=== PATIENT | female | born 1970 | race Caucasian/White ===

== ENCOUNTER → 2018-06-08 | Outpatient (CLI) | payer OTHER ==
[~2018-06-08] MED LIST: ALBUTEROL MDI; LISI2.5T PO; METO25TA91 PO; OMNIPAQUE 350 MG/ML, 100ML BOTTLE ONE; QVAR; TIOT18CA INH
== END | disposition home or self-care (01) ==
LOC: RAD 10:13
PROVIDERS: ATTEND Family Medicine
DX: N85.2 Hypertrophy of uterus (principal); K76.0 Fatty (change of) liver, not elsewhere classified; K86.2 Cyst of pancreas; K59.00 Constipation, unspecified
CPT/HCPCS: 74178; Q9967

== ENCOUNTER 2018-07-11 11:35 | Day surgery (SDC) | payer OTHER ==
[2018-07-10 08:35] VITALS: BP 122/63
[~2018-07-11] VITALS: Ht 170.2 cm; Wt 72.8 kg
[~2018-07-11 11:35] MED LIST changes: +ALBU18HF PO; -OMNIPAQUE 350 MG/ML, 100ML BOTTLE ONE
[2018-07-11] MEDS ORDERED: LACTATED RINGERS 1,000 ML IV SCH (11:46)
[2018-07-11] MEDS ORDERED: SUGAMMADEX 200 MG/2 ML IVPush ONE (11:46)
[2018-07-11] MEDS ORDERED: PIPERACILLIN/TAZO/PMX 3.375GM 50 ML ONE (11:46)
[2018-07-11] MEDS ORDERED: CHLORHEXIDINE 15 ML BOTTLE MM ONE (12:00)
[2018-07-11] MEDS ORDERED: APREPITANT 40 MG CAPSULE PO ONE (12:00)
[2018-07-11 12:05] VITALS: BP 122/63
[2018-07-11] MEDS ORDERED: ALBUTEROL SULFATE 2.5 MG/3 ML ONE (12:21)
[2018-07-11] MEDS ORDERED: PROPOFOL 10 MG/ML, 20ML ONE (13:22)
[2018-07-11] MEDS ORDERED: PHENYLEPHRINE 10 MG/ML ONE (13:53)
[2018-07-11] MEDS ORDERED: ROCURONIUM 10MG/ML,5ML ONE (13:53)
[2018-07-11] MEDS ORDERED: LIDOCAINE-MPF 2% ,5ML ONE (13:53)
[2018-07-11] MEDS ORDERED: ALBUTEROL HFA 90 MCG/SPRAY ONE (13:54)
[2018-07-11 15:22] LABS: BASOPHILS # (AUTO) 0.13 x10^3/uL (0-0.1); BASOPHILS % (AUTO) 2 % (0-1); EOSINOPHILS # (AUTO) 0.18 x10^3/uL (0-0.4); EOSINOPHILS % (AUTO) 3 % (1-7); LYMPHOCYTES # (AUTO) 2.12 x10^3/uL (1-3.4); LYMPHOCYTES % (AUTO) 34 % (22-44); MD NO; MEAN CORPUSCULAR HEMOGLOBIN 36.2 pg (27.0-34.8); MEAN CORPUSCULAR HGB CONC 33.2 g/dL (32.4-35.8); MEAN PLATELET VOLUME 8.5 fL (7.4-10.4); MONOCYTES # (AUTO) 0.82 x10^3/uL (0.2-0.8); MONOCYTES % (AUTO) 13 % (2-9); NEUTROPHILS # (AUTO) 2.96 x10^3/uL (1.8-6.8); NEUTROPHILS % (AUTO) 48 % (42-75); PLATELET COUNT 284 x10^3/uL (130-400); RED BLOOD COUNT 3.87 x10^6/uL (3.82-5.3); RED CELL DISTRIBUTION WIDTH 16.4 % (9.6-15.2)
[2018-07-11 15:30] LABS: ALBUMIN 3.1 g/dL (3.4-5.0); ANION GAP 13 mmol/L (5-15); CALCIUM 8.7 mg/dL (8.5-10.1); CHLORIDE 108 mmol/L (98-107)
[2018-07-11 15:43] LABS: ALANINE AMINOTRANSFERASE 135 U/L (12-78); ALKALINE PHOSPHATASE 92 U/L (45-117); BILIRUBIN,TOTAL 0.4 mg/dL (0.2-1.0); CREATININE 0.83 mg/dL (0.55-1.02)
== END 2018-07-11 16:20 | disposition home or self-care (01) ==
LOC: OUT 11:35
PROVIDERS: ATTEND Internal Medicine Gastroenterology
DX: K29.50 Unspecified chronic gastritis without bleeding (principal); K22.10 Ulcer of esophagus without bleeding; K22.2 Esophageal obstruction; K44.9 Diaphragmatic hernia without obstruction or gangrene; K86.2 Cyst of pancreas; J44.9 Chronic obstructive pulmonary disease, unspecified; Z86.010 Personal history of colon polyps; Z88.8 Allergy status to other drugs, medicaments and biological substances; Z87.891 Personal history of nicotine dependence
CPT/HCPCS: 36415; 43238; 80053; 80074; 80307; 80324; 82150; 82784; 83516; 83690; 84443; 85025; 86301; 88112; 88173; 88305; 94640; J2370; J2543; J2704; J3490; J7120; J8501; G0480

== ENCOUNTER → 2018-10-18 | Outpatient (CLI) | payer OTHER ==
[~2018-10-18] MED LIST changes: +DEXL60CA2 PO
[2018-10-18 14:38] LABS: BASOPHILS # (AUTO) 0.07 x10^3/uL (0-0.1); BASOPHILS % (AUTO) 1 % (0-1); EOSINOPHILS # (AUTO) 0.53 x10^3/uL (0-0.4); EOSINOPHILS % (AUTO) 5 % (1-7); LYMPHOCYTES # (AUTO) 2.53 x10^3/uL (1-3.4); LYMPHOCYTES % (AUTO) 22 % (22-44); MD NO; MEAN CORPUSCULAR HEMOGLOBIN 33.2 pg (27.0-34.8); MEAN CORPUSCULAR HGB CONC 33.9 g/dL (32.4-35.8); MEAN CORPUSCULAR VOLUME 98.1 fL (80-100); MEAN PLATELET VOLUME 8.3 fL (7.4-10.4); MONOCYTES # (AUTO) 0.97 x10^3/uL (0.2-0.8); MONOCYTES % (AUTO) 8 % (2-9); NEUTROPHILS # (AUTO) 7.38 x10^3/uL (1.8-6.8); NEUTROPHILS % (AUTO) 64 % (42-75); PLATELET COUNT 309 x10^3/uL (130-400); RED CELL DISTRIBUTION WIDTH 13.7 % (9.6-15.2)
[2018-10-18 14:47] LABS: ANION GAP 7 mmol/L (5-15); CALCIUM 9.5 mg/dL (8.5-10.1); CHLORIDE 107 mmol/L (98-107); CREATININE 0.77 mg/dL (0.55-1.02)
== END | disposition home or self-care (01) ==
LOC: STAR 13:34
PROVIDERS: ATTEND Obstetrics & Gynecology Female Pelvic Medicine and Reconstructive Surgery
DX: Z01.818 Encounter for other preprocedural examination (principal); N85.2 Hypertrophy of uterus; D25.9 Leiomyoma of uterus, unspecified
CPT/HCPCS: 36415; 71046; 80048; 85025; 93005

== ENCOUNTER 2018-11-12 10:39 | Day surgery (SDC) | payer OTHER ==
[~2018-11-12] VITALS: Ht 170.2 cm; Wt 70.8 kg
[2018-11-12] MEDS ORDERED: OMEP20TA62 PO (11:41)
[2018-11-12] MEDS ORDERED: LACTATED RINGERS 1,000 ML IV SCH ×2 (11:44→17:38)
[2018-11-12 11:53] LABS: HCG UR SG 1.018 (1.003-1.030)
[2018-11-12] MEDS ORDERED: SCOPOLAMINE PATCH, 1.5MG PATCH.TD72 TD ONE (12:00)
[2018-11-12] MEDS ORDERED: ACETAMINOPHEN 500 MG TABLET PO ONE (12:00)
[2018-11-12] MEDS ORDERED: GABAPENTIN 300 MG CAPSULE PO ONE (12:00)
[2018-11-12] MEDS ORDERED: INDIGO CARMINE 0.8%, 5ML ONE (13:45)
[2018-11-12] MEDS ORDERED: ONDANSETRON ODT 8 MG PO PRN (14:00)
[2018-11-12] MEDS ORDERED: hydrALAzine 20 MG/ML, 1ML IV PRN (14:00)
[2018-11-12] MEDS ORDERED: PROMETHAZINE 25 MG/ML, 1ML IV PRN (14:00)
[2018-11-12] MEDS ORDERED: LABETALOL 5MG/ML, 20ML IV PRN (14:00)
[2018-11-12] MEDS ORDERED: PROMETHAZINE 25 MG/ML, 1ML IM PRN ×2 (14:00)
[2018-11-12] MEDS ORDERED: PROMETHAZINE 25 MG SUPP PR PRN (14:00)
[2018-11-12] MEDS ORDERED: HYDROmorphone 2 MG/ML, 1ML IVPush PRN (14:00)
[2018-11-12] MEDS ORDERED: MORPHINE SULFATE 4 MG/ML, 1ML IVPush PRN (14:00)
[2018-11-12] MEDS ORDERED: OXYcodone 5 MG/5 ML ORAL.SOL UDC PO PRN (14:00)
[2018-11-12] MEDS ORDERED: ONDANSETRON 2MG/ML, 2ML IV PRN (14:00)
[2018-11-12] MEDS ORDERED: MEPERIDINE/PF 25MG/0.5ML IVPush PRN (14:00)
[2018-11-12] MEDS ORDERED: PROMETHAZINE 12.5 MG SUPP PR PRN (14:00)
[2018-11-12] MEDS ORDERED: HALOPERIDOL 5 MG/ML IV PRN (14:00)
[2018-11-12] MEDS ORDERED: PROPOFOL 10 MG/ML, 20ML ONE (14:12)
[2018-11-12] MEDS ORDERED: KETOROLAC 30 MG/1 ML ONE (14:12)
[2018-11-12] MEDS ORDERED: DEXAMETHASONE 4 MG/ML, 1ML ONE (14:12)
[2018-11-12] MEDS ORDERED: NEOSTIGMINE 1 MG/ML, 10ML ONE (14:12)
[2018-11-12] MEDS ORDERED: CEFAZOLIN 1,000 MG ONE (14:12)
[2018-11-12] MEDS ORDERED: ONDANSETRON 2MG/ML, 2ML ONE (14:12)
[2018-11-12] MEDS ORDERED: ROCURONIUM 10 MG/ML,10ML ONE (14:12)
[2018-11-12] MEDS ORDERED: GLYCOPYRROLATE 0.2MG/1ML, 5ML ONE (14:12)
[2018-11-12] MEDS ORDERED: OXYcodone 5 MG/5 ML ORAL.SOL UDC ONE (17:42)
[2018-11-12] MEDS ORDERED: FENTANYL PF 100 MCG/2ML ONE (17:42)
[2018-11-12] MEDS: FENTANYL PF 100 MCG/2ML IV PRN ×2 (17:45→17:52)
[2018-11-12] MEDS ORDERED: IBUPROFEN 600 MG TABLET PO PRN (18:00)
[2018-11-12] MEDS ORDERED: OXYcodone/APAP 5/325MG TABLET PO PRN (18:00)
[2018-11-12] MEDS ORDERED: ONDANSETRON 2MG/ML, 2ML IVPush PRN (18:00)
[2018-11-12] MEDS ORDERED: PROMETHAZINE 25 MG SUPP PR ONE (18:00)
== END 2018-11-12 20:10 | disposition home or self-care (01) ==
LOC: OUT 10:39 → 4NOR 18:17 → OUT 20:10
PROVIDERS: ATTEND Obstetrics & Gynecology Female Pelvic Medicine and Reconstructive Surgery
DX: D25.9 Leiomyoma of uterus, unspecified (principal); N92.0 Excessive and frequent menstruation with regular cycle; N39.3 Stress incontinence (female) (male); N32.81 Overactive bladder; J44.9 Chronic obstructive pulmonary disease, unspecified; F17.210 Nicotine dependence, cigarettes, uncomplicated; K21.9 Gastro-esophageal reflux disease without esophagitis; Z88.8 Allergy status to other drugs, medicaments and biological substances; Z91.013 Allergy to seafood
CPT/HCPCS: 58554; 81025; 88307; J0690; J1100; J1885; J2250; J2405; J2704; J2710; J3010; J3490; J7120; G0378